=== PATIENT | female | born 1985 | race Caucasian/White ===

== ENCOUNTER 2016-07-11 06:06 | Inpatient (IN) | payer OTHER ==
[~2016-07-11] VITALS: Ht 162.6 cm; Wt 102.0 kg
[2016-07-11] MEDS ORDERED: ONDANSETRON 2MG/ML, 2ML IVPush ONE (08:30)
[2016-07-11] MEDS ORDERED: FAMOTIDINE 20 MG/2 ML IVP ONE (08:30)
[2016-07-11] MEDS ORDERED: SODIUM CHLORIDE 0.9% 1,000ML IVBOLUS ONE (08:30)
[2016-07-11] MEDS ORDERED: SODIUM CHLORIDE FLUSH 10ML SYR IVF ONE (08:30)
[2016-07-11] MEDS ORDERED: BACI1TAB3 PO (08:54)
[2016-07-11] MEDS ORDERED: CHOL20002 PO (08:54)
[2016-07-11] MEDS ORDERED: MULT-658 PO (08:54)
[2016-07-11] MEDS ORDERED: FAMOTIDINE 20 MG/2 ML ONE (08:58)
[2016-07-11] MEDS ORDERED: ONDANSETRON 2MG/ML, 2ML ONE (08:58)
[2016-07-11 09:14] LABS: ASPARTATE AMINO TRANSFERASE 15 U/L (15-37); BLOOD UREA NITROGEN 18 mg/dL (7-18)
[2016-07-11] MEDS ORDERED: OMNIPAQUE 350 MG/ML, 100ML BOTTLE ONE (10:32)
[2016-07-11] MEDS ORDERED: HYDROcodone/APAP 5/325 TABLET PO PRN (16:00)
[2016-07-11] MEDS ORDERED: ENOXAPARIN 40 MG/0.4 ML SQ SCH (16:00)
[2016-07-11] MEDS ORDERED: PROMETHAZINE 25 MG/ML, 1ML IM PRN (16:00)
[2016-07-11] MEDS ORDERED: ONDANSETRON 2MG/ML, 2ML IVP PRN (16:00)
[2016-07-11] MEDS ORDERED: MORPHINE SULFATE 4 MG/ML, 1ML IVPush PRN (16:00)
[2016-07-11] MEDS ORDERED: GUAIFENESIN/DM 200-20MG, 10ML UDC PO PRN (16:00)
[2016-07-11] MEDS ORDERED: LABETALOL 5MG/ML, 20ML IV PRN (16:00)
[2016-07-11 16:04] VITALS: BP 121/82
[2016-07-11] MEDS: SODIUM CHLORIDE 0.9% 1,000 ML IV SCH (17:24)
[2016-07-11 19:45] VITALS: BP 107/72
[2016-07-12] MEDS: SODIUM CHLORIDE 0.9% 1,000 ML IV SCH ×2 (01:01→07:53)
[2016-07-12 01:04] VITALS: BP 102/68
[2016-07-12 06:11] LABS: ASPARTATE AMINO TRANSFERASE 14 U/L (15-37); BLOOD UREA NITROGEN 12 mg/dL (7-18)
[2016-07-12 07:46] VITALS: BP 123/73
[2016-07-12] MEDS ORDERED: SENNA/DOCUSATE TABLET PO SCH (09:00)
[2016-07-12] MEDS ORDERED: LACTOBACILLUS CHEW TABLET PO SCH (09:00)
[2016-07-12] MEDS ORDERED: MULTIVITAMIN 1 TABLET PO SCH (09:00)
[2016-07-12] MEDS ORDERED: CHOLECALCIFEROL 1,000 UNIT TABLET PO SCH (09:00)
== END 2016-07-12 12:50 | disposition home or self-care (01) | DRG 391 ==
LOC: ED 09:24 → EDIP 13:51 → 3NW 16:18
PROVIDERS: ADMIT Internal Medicine; ATTEND Internal Medicine
DX: K52.9 Noninfective gastroenteritis and colitis, unspecified (principal); E43 Unspecified severe protein-calorie malnutrition; D72.829 Elevated white blood cell count, unspecified; R73.9 Hyperglycemia, unspecified; R74.8 Abnormal levels of other serum enzymes; E28.2 Polycystic ovarian syndrome; J30.2 Other seasonal allergic rhinitis; K21.9 Gastro-esophageal reflux disease without esophagitis; N83.00 Follicular cyst of ovary, unspecified side; Z87.891 Personal history of nicotine dependence; Z80.3 Family history of malignant neoplasm of breast; Z82.49 Family history of ischemic heart disease and other diseases of the circulatory system; Z90.89 Acquired absence of other organs; Z79.899 Other long term (current) drug therapy; Z88.2 Allergy status to sulfonamides; Z88.8 Allergy status to other drugs, medicaments and biological substances; Z68.38 Body mass index [BMI] 38.0-38.9, adult
CPT/HCPCS: 36415; 74177; 76700; 76830; 80053; 80061; 81003; 83690; 83735; 84100; 84439; 84443; 84703; 85025; 85610; 85651; 96361; 96374; 96375; J1650; J2405; Q9967; J7030; S0028